=== PATIENT | male | born 1990 | race Caucasian/White ===

== ENCOUNTER → 2017-03-13 | Outpatient (REF) | payer BC | LOC: M SFHCLERA 10:35 | DX: J02.9 Acute pharyngitis, unspecified (principal) ==

== ENCOUNTER → 2017-03-13 | Outpatient (CLI) | payer BC | LOC: M LRY 11:01 | DX: R05 Cough (principal) | CPT/HCPCS: 71046 ==

== ENCOUNTER → 2017-08-07 | Outpatient (REF) | payer BC | LOC: M SFHCLERA 15:24 | DX: J02.9 Acute pharyngitis, unspecified (principal) ==

== ENCOUNTER → 2018-06-07 | Outpatient (REF) | payer BC | LOC: M SFHCLERA 13:18 | PROVIDERS: ATTEND Physician Assistant | DX: J02.9 Acute pharyngitis, unspecified (principal) ==

== ENCOUNTER → 2018-10-24 | Outpatient (REF) | payer BC | LOC: M SFHCLERA 13:09 | PROVIDERS: ATTEND Nurse Practitioner Family | DX: J02.9 Acute pharyngitis, unspecified (principal) ==

== ENCOUNTER → 2019-04-01 | Outpatient (REF) | payer BC | LOC: M SFHCLERA 10:13 | PROVIDERS: ATTEND Nurse Practitioner Family | DX: R68.89 Other general symptoms and signs (principal) ==

== ENCOUNTER → 2019-04-05 | Outpatient (CLI) | payer BC ==
--- NOTE | 2019-04-05 19:05 | REP ---
PA and lateral chest: Comparison is 03/13/2017. The lung brown are clear. The cardiac size is normal. The alex, mediastinum, and skeletal structures are unremarkable. Impression: Negative PA and lateral chest. There is no interval change. Electronically Signed by Adarsh Peterson MD 04/05/2019 06:57 P
== END ==
LOC: M LRY 18:44
PROVIDERS: ATTEND Nurse Practitioner Family
DX: R07.89 Other chest pain (principal)

== ENCOUNTER → 2019-05-22 | Outpatient (CLI) | payer BC ==
--- NOTE | 2019-05-22 20:25 | REP ---
Clinical: Cough . Comparison: 04/05/2019 . Technique: PA and lateral. Findings: The mediastinum and cardiac silhouette are normal. The lung brown are clear and without acute consolidation, effusion, or pneumothorax. The skeletal structures are intact and normal. Impression: 1. No acute cardiopulmonary process. Electronically Signed by Jose Ocampo MD 05/22/2019 08:17 P
== END ==
LOC: M LRY 19:47
PROVIDERS: ATTEND Physician Assistant
DX: R50.9 Fever, unspecified (principal)

== ENCOUNTER → 2019-05-22 | Outpatient (REF) | payer BC | LOC: M SFHCLERA 19:52 | PROVIDERS: ATTEND Physician Assistant | DX: R50.9 Fever, unspecified (principal) ==

== ENCOUNTER → 2019-11-25 | Outpatient (REF) | payer BC | LOC: M WUC 19:20 | PROVIDERS: ATTEND Physician Assistant | DX: J02.9 Acute pharyngitis, unspecified (principal) ==

== ENCOUNTER → 2020-03-16 | Outpatient (CLI) | payer SELFPAY | LOC: M LABSMTC 14:00 | PROVIDERS: ATTEND Pediatrics | DX: Z20.822 Contact with and (suspected) exposure to COVID-19 (principal) ==

== ENCOUNTER → 2024-07-12 | Outpatient (REF) | payer SELFPAY ==
[2024-07-12 11:44] LABS: SEMEN APPEARANCE OPAQUE (OPAQUE); SEMEN VOLUME 0.8 ml (2.0-5.0)
[2024-07-12 11:45] LABS: SEMEN VISCOSITY LIQUID (LIQUID); SEMEN pH 8.5 (7.0-8.0); WBC CONCENTRATION <=1 M/ml (<=1 M/ml)
== END ==
LOC: M LAB REF 11:21
PROVIDERS: ATTEND Urology
DX: Z98.52 Vasectomy status (principal)